=== PATIENT | female | born 2000 | race Caucasian/White ===

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

== ENCOUNTER 2019-06-05 11:07 | Emergency (ER) | payer OTHER ==
[2019-06-05 11:19] VITALS: TEMP 98.9; BMI 28.3
--- NOTE | 2019-06-05 12:16 | PDOC ---
History of Present Illness - General Chief Complaint: Cold Symptoms Stated Complaint: SOB Time Seen by Provider: 06/05/19 11:24 - History of Present Illness Initial Comments: 06/05/19 12:14 19-year-old female with 3 days of upper respiratory flulike symptoms and fever x1 day no comorbidities Past History - Past Medical History Allergies/Adverse Reactions: Allergies Allergy/AdvReac Type Severity Reaction Status Date / Time cat dander Allergy Verified 06/05/19 11:16 ketorolac [From Toradol] Allergy Hives Verified 06/05/19 11:21 Home Medications: Ambulatory Orders NK [No Known Home Medication] 06/11/17 COPD: No - Immunization History Immunization Up to Date: Yes - Psycho Social/Smoking Cessation Hx Smoking History: Never smoked Have you smoked in the past 12 months: No Hx Alcohol Use: No Drug/Substance Use Hx: No Substance Use Type: None Review of Systems - Review of Systems Constitutional: Yes: Fever HEENTM: Yes: Nose Congestion Respiratory: Yes: Cough *Physical Exam - Vital Signs Last Vital Signs Temp Pulse Resp BP Pulse Ox 98.9 F 111 H 18 135/87 95 06/05/19 11:16 06/05/19 11:16 06/05/19 11:16 06/05/19 11:16 06/05/19 11:16 - Physical Exam 06/05/19 12:14 GENERAL: The patient is awake, alert, and fully oriented, in no acute distress. HEAD: Normal with no signs of trauma. EYES: sclera anicteric, conjunctiva clear. ENT: Ears normal tympanic membranes normal oropharynx clear uvula midline NECK: Normal range of motion LUNGS: Breath sounds equal, clear to auscultation bilaterally. No wheezes, and no crackles. HEART: S1 and S2 without murmur, rub or gallop. ABDOMEN: Soft, nontender, normoactive bowel sounds. No guarding, no rebound. No masses. EXTREMITIES: Normal range of motion, no edema. No clubbing or cyanosis. No cords, erythema, or tenderness. NEUROLOGICAL: Cranial nerves II through XII grossly intact. Normal speech, normal gait. PSYCH: Normal mood, normal affect. SKIN: Warm, Dry, normal turgor, no rashes or lesions noted. Medical Decision Making - Medical Decision Making 06/05/19 12:14 Negative influenza swab viral upper respiratory infection supportive care Discharge - Discharge Information Problems reviewed: Yes Clinical Impression/Diagnosis: Viral URI with cough Condition: Stable Disposition: HOME - Admission No - Follow up/Referral Referrals: Walt Livingston MD [Staff Physician] - - Patient Discharge Instructions Patient Printed Discharge Instructions: DI for Viral Upper Respiratory Infection -- Adult Additional Instructions: Return to the emergency room for worsening symptoms. Supportive care with clear liquid, Tylenol Motrin for fever. Follow-up with your primary care physician in 1 to 2 days for further evaluation and treatment options. Follow- up without fail. - Post Discharge Activity
[2019-06-05 12:26] VITALS: BP 133/82; PULSE 107
--- NOTE | 2019-06-06 12:10 | EKG ---
Test Reason : Blood Pressure : / mmHG Vent. Rate : 092 BPM Atrial Rate : 092 BPM P-R Int : 116 ms QRS Dur : 084 ms QT Int : 358 ms P-R-T Axes : -08 -18 009 degrees QTc Int : 442 ms POOR DATA QUALITY, INTERPRETATION MAY BE ADVERSELY AFFECTED NORMAL SINUS RHYTHM ABNORMAL ECG WHEN COMPARED WITH ECG OF 23-NOV-2018 16:35, INVERTED T WAVES HAVE REPLACED NONSPECIFIC T WAVE ABNORMALITY IN ANTERIOR LEADS Confirmed by MD Nuria, Dylon ([id number]) on 06/06/2019 12:10:07 PM Referred By: Confirmed By:Dylon Quiñones MD
== END 2019-06-05 12:35 | disposition home or self-care (01) ==
LOC: JERFT 11:07
DX: J06.9 Acute upper respiratory infection, unspecified (principal); B97.89 Other viral agents as the cause of diseases classified elsewhere
CPT/HCPCS: 87804; 93005; 93010; 99284-25

== ENCOUNTER 2019-12-25 11:34 | Emergency (ER) | payer OTHER ==
[2019-12-25 11:42] VITALS: TEMP 97.8; BMI 29.7
--- NOTE | 2019-12-25 11:42 | PDOC ---
Rapid Medical Evaluation Chief Complaint: Vaginal Bleeding Time Seen by Provider: 12/25/19 11:38 Medical Evaluation: Allergies Allergy/AdvReac Type Severity Reaction Status Date / Time cat dander Allergy Verified 12/25/19 11:38 ketorolac [From Toradol] Allergy Hives Verified 12/25/19 11:38 12/25/19 11:38 I have performed a brief in-person evaluation of this patient. The patient presents with a chief complaint of: LMP 11/03 present with complains of vaginal bleeding yesterday saoking 1 pad which has improved now. pt is 8wks by LMP. Pt also report aching left back pains with dysuria for 3 days. pt also feels she has yeast infection. report has first OB appt today but was told by office they do not take her insurance. report no bleeding now Pertinent physical exam findings: A&O x 3 in NAD. no CAT I have ordered the following: CBC, beta hcg, cmp, UA, Ucx, POCUS The patient will proceed to the ED for further evaluation. Discharge Disposition - Diagnosis Vaginal bleeding before 22 weeks gestation - Discharge Dispostion Condition at time of disposition: Stable - Referrals - Patient Instructions - Post Discharge Activity
[2019-12-25 12:42] LABS: BASO % 0.5 % (0-2.0); EOS % 0.3 % (0-4.5); HEMATOCRIT 39.8 % (32.4-45.2); HEMOGLOBIN 13.4 GM/dL (10.7-15.3); LYMPH % 18.5 % (8-40); MCH 31.7 pg (25.7-33.7); MCHC 33.8 g/dl (32.0-36.0); MEAN PLT VOLUME 8.2 fl (7.5-11.1); MONO % 6.2 % (3.8-10.2); NEUT % 74.5 % (42.8-82.8); PLATELET COUNT 261 K/MM3 (134-434); RBC 4.23 M/mm3 (3.60-5.2); WHITE BLOOD COUNT 10.3 K/mm3 (4.0-10.0)
[2019-12-25 12:51] LABS: PH,URINE 7.5 (5.0-8.0); URINE APPEARANCE CLEAR; URINE BILIRUBIN NEGATIVE (NEGATIVE); URINE COLOR YELLOW; URINE GLUCOSE (UA) NEGATIVE (NEGATIVE); URINE KETONE NEGATIVE (NEGATIVE); URINE LEUK ESTERASE NEGATIVE (NEGATIVE); URINE NITRITE NEGATIVE (NEGATIVE); URINE PROTEIN NEGATIVE (NEGATIVE); URINE UROBILINOGEN 0.2 mg/dL (0.2-1.0)
--- NOTE | 2019-12-25 12:53 | PDOC ---
History of Present Illness <Laura Connelly - Last Filed: 12/25/19 14:47> - General History Source: Patient Exam Limitations: No Limitations - History of Present Illness Travel History: No Initial Comments: 12/25/19 12:51 HISTORY OF PRESENT ILLNESS: 19-year-old with last menstrual period 11/03 presents emergency department for evaluation of scant vaginal bleeding and lower back pain over the past 2 days. Patient reports she is needed only a panty liner as she has had vaginal spotting but was concerned when this morning she had small blood clot discharged. Patient reports also thick white vaginal disch arge. Patient reports she had made an appointment with [facility] to be evaluated today but when she got to the office was told that they did not accept her insurance. Patient then proceeded to the emergency department for evaluation. She denies fevers, chills, lightheadedness, dizziness, chest pain, shortness of breath, dysuria, hematuria, rectal bleeding, constipation or diarrhea. No recent travel or sick contacts. PAST MEDICAL HISTORY: Denies past medical history SURGICAL HISTORY: Denies ALLERGIES: No known drug allergies REVIEW OF SYSTEMS General/Constitutional: Denies fever or chills. Denies weakness, weight change. HEENT: Denies change in vision. Denies ear pain or discharge. Denies sore throat. Cardiovascular: Denies chest pain or shortness of breath. Respiratory: Denies cough, wheezing, or hemoptysis. Gastrointestinal: Denies nausea, vomiting, diarrhea or constipation. Denies r ectal bleeding. Genitourinary: See HPI Musculoskeletal: Denies joint or muscle swelling or pain. Denies neck or back pain. Skin and breasts: Denies rash or easy bruising. Neurologic: Denies headache, vertigo, loss of consciousness, or loss of sensation. Psychiatric: Denies depression or anxiety. Endocrine: Denies increased thirst. Denies abnormal weight change. Hematologic/Lymphatic: Denies anemia, easy bleeding, or history of blood clots. Allergic/Immunologic: Denies hives or skin allergy. Denies latex allergy. PHYSICAL EXAM General Appearance: Well-appearing, appropriately dressed. No apparent distress, no intoxication. Gastrointestinal/Abdominal: Normal bowel sounds. Abdomen soft, non-distended. No tenderness or rebound tenderness. No organomegaly, pulsatile mass, guarding, hernia, hepatomegaly, splenomegaly. Lymphatic: No adenopathy, tenderness. Musculoskeletal/Extremities: Normal inspection. FROM of all extremities, normal capillary refill. Pelvis Stable. No CVA tenderness. No tenderness to extremities, pedal edema, swelling, erythema or deformity. 12/25/19 13:09 <GoldenDewayne - Last Filed: 12/25/19 17:30> - General Chief Complaint: Vaginal Bleeding Stated Complaint: BACK PAIN Time Seen by Provider: 12/25/19 11:38 Past History <MaricelLaura Lujan - Last Filed: 12/25/19 14:47> - Medical History COPD: No - Reproductive History (#): 1 Para: 0 Therapeutic (s) & number: No Spontaneous : 0 - Immunization History Immunization Up to Date: Yes - Psycho-Social/Smoking History Smoking History: Never smoked Have you smoked in the past 12 months: No Information on smoking cessation initiated: No - Substance Abuse Hx (Audit-C & DAST Scrn) How often the patient has a drink containing alcohol: Never Score: In Men: 4 or > Positive; In Women: 3 or > Positive: 0 Screen Result (Pos requires Nsg. Audit-10AR): Negative In the last yr the pt used illegal drug/Rx for NonMed reason: No Score: Yes response is considered Positive: 0 Screen Result (Positive result requires Nsg. DAST-10): Negative <Dewayne Franks - Last Filed: 12/25/19 17:30> - Medical History Allergies/Adverse Reactions: Allergies Allergy/AdvReac Type Severity Reaction Status Date / Time cat dander Allergy Verified 12/25/19 11:38 ketorolac [From Toradol] Allergy Hives Verified 12/25/19 11:38 Home Medications: Ambulatory Orders Lidocaine 2% Jelly [Xylocaine 2% Jelly -] 1 applic TP DAILY #1 tube 12/03/19 Pnv No.121/Iron/Folic Acid [ Multivitamin Tablet] 1 each PO DAILY #30 tablet 12/03/19 Terconazole 80 mg VG HS #3 supp.vag 12/25/19 *Physical Exam - Vital Signs Last Vital Signs Temp Pulse Resp BP Pulse Ox 97.8 F 86 16 122/74 95 12/25/19 11:39 12/25/19 11:39 12/25/19 11:39 12/25/19 11:39 12/25/19 11:39 <Laura Connelly - Last Filed: 12/25/19 14:47> - Vital Signs Last Vital Signs Temp Pulse Resp BP Pulse Ox 97.8 F 86 16 122/74 95 12/25/19 11:39 12/25/19 11:39 12/25/19 11:39 12/25/19 11:39 12/25/19 11:39 - Physical Exam General Appearance: Yes: Appropriately Dressed. No: Apparent Distress Female Pelvic Exam: positive: normal external exam, cervical os closed, discharge (Thick white anodorous discharge with the appearance consistent of candidiasis), other (Exquisite tenderness with insertion of speculum and index finger disproportionate to exam.). negative: CMT, adnexal tenderness, vaginal bleeding Gastrointestinal/Abdominal: positive: Normal Bowel Sounds, Soft. negative: T blayne <Dewayne Franks - Last Filed: 12/25/19 17:30> ED Treatment Course - LABORATORY CBC & Chemistry Diagram: 12/25/19 12:16 12/25/19 12:16 - ADDITIONAL ORDERS Additional order review: Laboratory Results 12/25/19 12/25/19 12:16 12:11 Sodium 138 Potassium 3.9 Chloride 105 Carbon Dioxide 24 Anion Gap 8 BUN 13.2 Creatinine 0.7 Est GFR (CKD-EPI)AfAm 143.54 Est GFR (CKD-EPI)NonAf 123.85 Random Glucose 82 Calcium 8.9 Total Bilirubin 0.4 AST 6 L ALT 12 L Alkaline Phosphatase 41 L Total Protein 7.0 Albumin 3.8 Beta HCG, Quant 11035.8 Urine Color Yellow Urine Appearance Clear Urine pH 7.5 D Ur Specific [place] 1.029 Urine Protein Negative Urine Glucose (UA) Negative Urine Ketones Negative Urine Blood Negative Urine Nitrite Negative Urine Bilirubin Negative Urine Urobilinogen 0.2 Ur Leukocyte Esterase Negative 12/25/19 12:16 RBC 4.23 MCV 94.0 MCHC 33.8 RDW 13.0 MPV 8.2 Neutrophils % 74.5 Lymphocytes % 18.5 D Monocytes % 6.2 Eosinophils % 0.3 Basophils % 0.5 <Laura Connelly - Last Filed: 12/25/19 14:47> - LABORATORY CBC & Chemistry Diagram: 12/25/19 12:16 12/25/19 12:16 - ADDITIONAL ORDERS Additional order review: Laboratory Results 12/25/19 12:11 Urine Color Yellow Urine Appearance Clear Urine pH 7.5 D Ur Specific [place] 1.029 Urine Protein Negative Urine Glucose (UA) Negative Urine Ketones Negative Urine Blood Negative Urine Nitrite Negative Urine Bilirubin Negative Urine Urobilinogen 0.2 Ur Leukocyte Esterase Negative 12/25/19 12:16 RBC 4.23 MCV 94.0 MCHC 33.8 RDW 13.0 MPV 8.2 Neutrophils % 74.5 Lymphocytes % 18.5 D Monocytes % 6.2 Eosinophils % 0.3 Basophils % 0.5 <Dewayne Franks - Last Filed: 12/25/19 17:30> Medical Decision Making - Medical Decision Making The patient was seen and evaluated in conjunction with midlevel provider under my direct supervision, ancillary studies were reviewed. I agree with the plan as outlined with_MARSHA Franks. HPI, workup/dispo as outlined. VS reviewed, wnl. Vital Signs Temp Pulse Resp BP Pulse Ox 97.8 F 86 16 122/74 95 12/25/19 11:39 12/25/19 11:39 12/25/19 11:39 12/25/19 11:39 12/25/19 11:39 bedside sono with 7 weeks live IUP 139 bpm. 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, return precautions, bleeding precautions 12/25/19 14:47 <Laura Connelly - Last Filed: 12/25/19 14:47> - Medical Decision Making 12/25/19 13:13 A/P: 19-year-old woman with vaginal bleeding over 2 days No cervical motion tenderness Thick white caseous discharge present in the vagina Cervical loss is closed Labs per RME Urine GC [id number] abdominal ultrasound Reassess 12/25/19 14:08 Laboratory Tests 12/25/19 12/25/19 12/25/19 12:11 12:11 12:16 WBC 10.3 H RBC 4.23 Hgb 13.4 Hct 39.8 MCV 94.0 MCH 31.7 MCHC 33.8 RDW 13.0 Plt Count 261 MPV 8.2 Absolute Neuts (auto) 7.7 Neutrophils % 74.5 Lymphocytes % 18.5 D Monocytes % 6.2 Eosinophils % 0.3 Basophils % 0.5 Nucleated RBC % 0 Sodium Potassium Chloride Carbon Dioxide Anion Gap BUN Creatinine Est GFR (CKD-EPI)AfAm Est GFR (CKD-EPI)NonAf Random Glucose Calcium Total Bilirubin AST ALT Alkaline Phosphatase Total Protein Albumin Beta HCG, Quant Urine Color Yellow Urine Appearance Clear Urine pH 7.5 D Ur Specific [place] 1.029 Urine Protein Negative Urine Glucose (UA) Negative Urine Ketones Negative Urine Blood Negative Urine Nitrite Negative Urine Bilirubin Negative Urine Urobilinogen 0.2 Ur Leukocyte Esterase Negative C. trachomatis (FILIBERTO) Pending N. gonorrhoeae (FILIBERTO) Pending 12/25/19 12:16 WBC RBC Hgb Hct MCV MCH MCHC RDW Plt Count MPV Absolute Neuts (auto) Neutrophils % Lymphocytes % Monocytes % Eosinophils % Basophils % Nucleated RBC % Sodium 138 Potassium 3.9 Chloride 105 Carbon Dioxide 24 Anion Gap 8 BUN 13.2 Creatinine 0.7 Est GFR (CKD-EPI)AfAm 143.54 Est GFR (CKD-EPI)NonAf 123.85 Random Glucose 82 Calcium 8.9 Total Bilirubin 0.4 AST 6 L ALT 12 L Alkaline Phosphatase 41 L Total Protein 7.0 Albumin 3.8 Beta HCG, Quant 64883.8 Urine Color Urine Appearance Urine pH Ur Specific [place] Urine Protein Urine Glucose (UA) Urine Ketones Urine Blood Urine Nitrite Urine Bilirubin Urine Urobilinogen Ur Leukocyte Esterase C. trachomatis (FILIBERTO) N. gonorrhoeae (FILIBERTO) 12/25/19 14:11 Previous blood testing revealed patient was Rh-. This patient has had some vaginal bleeding abdominal cramping will treat with RhoGam. 12/25/19 16:33 Patient's Rh status is confirmed. RhoGam ordered. Discharge home after receives RhoGam. I discussed the physical exam findings, ancillary test results and final diagnoses with the patient. I answered all of the patient's questions. The patient was satisfied with the care received and felt comfortable with the discharge plan and treatment plan. The patient will call their primary care physician within 24 hours to arrange follow-up and will return to the Emergency Department with any new, persistent or worsening symptoms. Portions of this note have been documented using voice recognition software. As a result, errors may occur in the furniture fabricator process. Effort has been made to correct all grammatical and furniture fabricator error, but some may have been missed which may produce sporadic inaccurate furniture fabricator or nonsensical phrases. <Dewayne Franks - Last Filed: 12/25/19 17:30> Discharge <Laura Connelly - Last Filed: 12/25/19 14:47> - Discharge Information Problems reviewed: Yes - Admission No <Dewayne Franks - Last Filed: 12/25/19 17:30> - Discharge Information Clinical Impression/Diagnosis: Vaginal bleeding before 22 weeks gestation, Suzy albicans infection Condition: Fair Disposition: HOME - Additional Discharge Information Prescriptions: Terconazole 80 mg VG HS #3 supp.vag - Patient Discharge Instructions Additional Instructions: You received RhoGam today. Take your vitamins. Keep well-hydrated. Avoid tobacco and alcohol as well as illegal drugs. Make an appointment with your [facility] for reevaluation. Return to the emergency department immediately for severe pain, vaginal bleeding that requires more than 2 pads per hour or for any other symptoms. Thank you very much for choosing us to provide your emergent health care needs.
[2019-12-25 13:16] LABS: ALBUMIN 3.8 g/dl (3.4-5.0); BILIRUBIN,TOTAL 0.4 mg/dL (0.2-1); BLOOD UREA NITROGEN 13.2 mg/dL (7-18); CALCIUM 8.9 mg/dL (8.5-10.1); CREATININE 0.7 mg/dL (0.55-1.3); POTASSIUM 3.9 mmol/L (3.5-5.1)
[2019-12-25] MEDS ORDERED: RHO(D) IMMUNE GLOBULIN 1,500 UNIT DISP.SYRIN IM ONE (16:32)
[2019-12-25 17:06] VITALS: BP 155/90; PULSE 90
== END 2019-12-25 17:06 | disposition home or self-care (01) ==
LOC: JER 11:34
PROC: 3E023GC Introduction of Other Therapeutic Substance into Muscle, Percutaneous Approach (ICD-10-PCS; principal; 2019-12-25)
DX: O26.851 Spotting complicating pregnancy, first trimester (principal)
CPT/HCPCS: 36415; 76815; 80053; 81003; 84702; 85025; 86850; 86900; 86901; 86999; 87086; 87491; 87591; 99284-25; J1561

== ENCOUNTER 2020-01-05 09:29 | Emergency (ER) | payer OTHER ==
[2020-01-05 09:40] VITALS: BMI 29.7
[2020-01-05] MEDS ORDERED: ACETAMINOPHEN 325 MG TABLET (FP) ONE (10:27)
[2020-01-05] MEDS ORDERED: ACETAMINOPHEN 325 MG TABLET (FP) PO ONE (10:28)
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
[2020-01-05 11:37] VITALS: BP 117/67; PULSE 76; TEMP 98.2
== END 2020-01-05 11:45 | disposition home or self-care (01) ==
LOC: JERFT 09:29
DX: S63.501A Unspecified sprain of right wrist, initial encounter (principal); M54.5 Low back pain; V89.2XXA Person injured in unspecified motor-vehicle accident, traffic, initial encounter
CPT/HCPCS: 73110-TC-RT-FY; 73130-TC-RT-FY; 76815; 99284-25

== ENCOUNTER 2020-10-29 17:06 | Emergency (ER) | payer OTHER ==
[2020-10-29 17:34] VITALS: BP 109/61; TEMP 98.2; BMI 28.8
[2020-10-29] MEDS ORDERED: LORATADINE 10 MG TABLET PO ONE (17:50)
[2020-10-29 18:08] VITALS: PULSE 82
[2020-10-29 18:27] LABS: BASO % 0.3 % (0-2.0); EOS % 2.1 % (0-4.5); LYMPH % 34.8 % (8-40); MCH 30.8 pg (25.7-33.7); MCHC 33.3 g/dl (32.0-36.0); MEAN CELL VOLUME 92.5 fl (80-96); MONO % 7.1 % (3.8-10.2); NEUT % 55.7 % (42.8-82.8); PLATELET COUNT 240 K/MM3 (134-434); RBC 4.22 M/mm3 (3.60-5.2); RDW 13.3 % (11.6-15.6); WHITE BLOOD COUNT 5.6 K/mm3 (4.0-10.0)
== END 2020-10-29 18:47 | disposition home or self-care (01) ==
LOC: JERFT 17:06 → JER 17:06 → JERFT 18:47
DX: L30.9 Dermatitis, unspecified (principal)
CPT/HCPCS: 36415; 85025; 99283-25

== ENCOUNTER 2020-11-09 14:28 | Emergency (ER) | payer OTHER ==
[2020-11-09 14:36] VITALS: BP 141/88; PULSE 51; TEMP 98.8; BMI 29.7
[2020-11-09] MEDS ORDERED: ONDANSETRON 4 MG/2 ML VIAL IVPUSH ONE (15:11)
[2020-11-09] MEDS ORDERED: SODIUM CHLORIDE 1,000 ML IV STA (15:11)
[2020-11-09] MEDS ORDERED: ONDANSETRON 4 MG/2 ML VIAL ONE (15:21)
[2020-11-09 15:58] LABS: CALCIUM 8.5 mg/dL (8.5-10.1)
[2020-11-09 15:59] LABS: BLOOD UREA NITROGEN 21.9 mg/dL (7-18)
[2020-11-09 16:02] LABS: CREATININE 0.8 mg/dL (0.55-1.3)
[2020-11-09 16:03] LABS: BILIRUBIN,TOTAL 0.9 mg/dL (0.2-1); TOT PROT 7.4 g/dl (6.4-8.2)
[2020-11-09 16:04] LABS: BASO % 0.1 % (0-2.0); HEMATOCRIT 39.4 % (32.4-45.2); HEMOGLOBIN 13.3 GM/dL (10.7-15.3); LYMPH % 2.3 % (8-40); MCH 31.5 pg (25.7-33.7); MCHC 33.8 g/dl (32.0-36.0); MEAN CELL VOLUME 93.3 fl (80-96); MEAN PLT VOLUME 8.8 fl (7.5-11.1); MONO % 2.5 % (3.8-10.2); NEUT % 95.1 % (42.8-82.8); PLATELET COUNT 191 K/MM3 (134-434); RBC 4.23 M/mm3 (3.60-5.2); RDW 13.7 % (11.6-15.6); WHITE BLOOD COUNT 10.9 K/mm3 (4.0-10.0)
[2020-11-09 16:38] LABS: ANISOCYTOSIS 0; MACROCYTOSIS 0; PLATELET ESTIMATE NORMAL
[2020-11-09 17:56] LABS: PH,URINE 6.5 (5.0-8.0); URINE APPEARANCE CLEAR; URINE BILIRUBIN NEGATIVE (NEGATIVE); URINE COLOR YELLOW; URINE GLUCOSE (UA) TRACE (NEGATIVE); URINE KETONE 4+ (NEGATIVE); URINE LEUK ESTERASE NEGATIVE (NEGATIVE); URINE NITRITE NEGATIVE (NEGATIVE); URINE PROTEIN 1+ (NEGATIVE)
[2020-11-09 18:01] LABS: HCG,QUALITATIVE URINE Negative
== END 2020-11-09 18:19 | disposition home or self-care (01) ==
LOC: JER 14:28
PROC: 3E033GC Introduction of Other Therapeutic Substance into Peripheral Vein, Percutaneous Approach (ICD-10-PCS; principal; 2020-11-09)
PROC: 3E0337Z Introduction of Electrolytic and Water Balance Substance into Peripheral Vein, Percutaneous Approach (ICD-10-PCS; principal; 2020-11-09)
DX: K52.9 Noninfective gastroenteritis and colitis, unspecified (principal)
CPT/HCPCS: 36415; 80053; 81003; 83690; 84703; 85025; 87086; 99284-25

== ENCOUNTER 2021-01-11 12:53 | Emergency (ER) | payer OTHER ==
[2021-01-11 13:05] VITALS: BP 109/67; PULSE 106; TEMP 98.1; BMI 24.3
== END 2021-01-11 14:04 | disposition home or self-care (01) ==
LOC: JERFT 12:53
DX: K08.89 Other specified disorders of teeth and supporting structures (principal)
CPT/HCPCS: 99283-25

== ENCOUNTER 2023-06-17 12:54 | Emergency (ER) | payer OTHER ==
[2023-06-17 13:03] VITALS: BP 118/55; PULSE 103; RESP 17; TEMP 98.3; BMI 21.9
[2023-06-17] MEDS ORDERED: SODIUM CHLORIDE 0.9% 500 ML INFUS.BAG IV ONE (13:52)
[2023-06-17 14:40] LABS: PH,URINE 5.5 (5.0-8.0); URINE APPEARANCE CLEAR; URINE BILIRUBIN NEGATIVE (NEGATIVE); URINE COLOR YELLOW; URINE GLUCOSE (UA) NEGATIVE (NEGATIVE); URINE KETONE TRACE (NEGATIVE); URINE LEUK ESTERASE NEGATIVE (NEGATIVE); URINE NITRITE NEGATIVE (NEGATIVE); URINE PROTEIN TRACE (NEGATIVE)
[2023-06-17 14:42] LABS: BASO % 0.8 % (0-2.0); EOS % 0.3 % (0-4.5); HEMATOCRIT 40.4 % (32.4-45.2); HEMOGLOBIN 13.5 GM/dL (10.7-15.3); LYMPH % 29.4 % (8-40); MCH 31.5 pg (25.7-33.7); MCHC 33.3 g/dl (32.0-36.0); MEAN CELL VOLUME 94.6 fl (80-96); MEAN PLT VOLUME 7.7 fl (7.5-11.1); MONO % 5.8 % (3.8-10.2); NEUT % 63.7 % (42.8-82.8); PLATELET COUNT 248 10^3/uL (134-434); RBC 4.28 M/mm3 (3.60-5.2); RDW 12.6 % (11.6-15.6); WHITE BLOOD COUNT 6.6 K/mm3 (4.0-10.0)
[2023-06-17 15:08] LABS: POTASSIUM 3.5 mmol/L (3.5-5.1)
[2023-06-17 15:10] LABS: ALBUMIN 4.2 g/dl (3.4-5.0); BLOOD UREA NITROGEN 14.7 mg/dL (7-18); CALCIUM 9.1 mg/dL (8.5-10.1)
[2023-06-17 15:13] LABS: CREATININE 0.8 mg/dL (0.55-1.3)
[2023-06-17 15:15] LABS: BILIRUBIN,TOTAL 0.7 mg/dL (0.2-1); TOT PROT 7.5 g/dl (6.4-8.2)
== END 2023-06-17 16:06 | disposition home or self-care (01) ==
LOC: JER 12:54
DX: R07.89 Other chest pain (principal); R55 Syncope and collapse; Z20.822 Contact with and (suspected) exposure to COVID-19
CPT/HCPCS: 0241U-QW; 36415; 71046-TC-FY; 80053; 81003; 84443; 84484; 84703; 85025; 87086; 93005; 93010; 99285-25

== ENCOUNTER 2023-09-02 14:24 | Emergency (ER) | payer OTHER ==
[2023-09-02 14:29] VITALS: RESP 20; BMI 21.1
[2023-09-02] MEDS ORDERED: FAMOTIDINE 20 MG/50 ML IVPB 20 MG/50 ML MG IVPB ONE (17:09)
[2023-09-02] MEDS ORDERED: ACETAMINOPHEN INJECTION 100 ML IVPB ONE (17:09)
[2023-09-02] MEDS: FAMOTIDINE 20 MG/50 ML IVPB 20 MG/50 ML MG IVPB ONE (17:25)
[2023-09-02] MEDS: ACETAMINOPHEN 1000 MG/100 ML BAG IVPB ONE (17:25)
[2023-09-02] MEDS: SODIUM CHLORIDE 1,000 ML IV STA (17:25)
[2023-09-02 17:40] LABS: BASO % 0.5 % (0-2.0); EOS % 0.2 % (0-4.5); HEMATOCRIT 38.9 % (32.4-45.2); HEMOGLOBIN 13.4 GM/dL (10.7-15.3); LYMPH % 26.7 % (8-40); MCH 32.6 pg (25.7-33.7); MCHC 34.4 g/dl (32.0-36.0); MEAN CELL VOLUME 94.6 fl (80-96); MEAN PLT VOLUME 8.1 fl (7.5-11.1); MONO % 6.9 % (3.8-10.2); NEUT % 65.7 % (42.8-82.8); PLATELET COUNT 224 10^3/uL (134-434); RBC 4.11 M/mm3 (3.60-5.2); RDW 13.1 % (11.6-15.6); WHITE BLOOD COUNT 9.8 K/mm3 (4.0-10.0)
[2023-09-02 18:07] LABS: POTASSIUM 3.6 mmol/L (3.5-5.1)
[2023-09-02 18:10] LABS: CALCIUM 8.8 mg/dL (8.5-10.1)
[2023-09-02 18:11] LABS: BLOOD UREA NITROGEN 13.6 mg/dL (7-18)
[2023-09-02 18:13] LABS: CREATININE 0.7 mg/dL (0.55-1.3)
[2023-09-02 18:15] LABS: BILIRUBIN,TOTAL 0.6 mg/dL (0.2-1)
[2023-09-02 18:20] LABS: PH,URINE 5.5 (5.0-8.0); URINE APPEARANCE CLEAR; URINE BILIRUBIN NEGATIVE (NEGATIVE); URINE COLOR DK YELLOW; URINE GLUCOSE (UA) NEGATIVE (NEGATIVE); URINE KETONE 1+ (NEGATIVE); URINE LEUK ESTERASE NEGATIVE (NEGATIVE); URINE NITRITE NEGATIVE (NEGATIVE); URINE PROTEIN TRACE (NEGATIVE); URINE UROBILINOGEN 0.2 mg/dL (0.2-1.0)
[2023-09-02 21:26] VITALS: BP 100/60; PULSE 66; TEMP 97.4
== END 2023-09-02 22:20 | disposition home or self-care (01) ==
LOC: JER 14:24
PROC: 3E033GC Introduction of Other Therapeutic Substance into Peripheral Vein, Percutaneous Approach (ICD-10-PCS; principal; 2023-09-02)
PROC: 3E030NZ Introduction of Analgesics, Hypnotics, Sedatives into Peripheral Vein, Open Approach (ICD-10-PCS; 2023-09-02)
DX: R06.02 Shortness of breath (principal); R00.2 Palpitations; R07.9 Chest pain, unspecified; R10.812 Left upper quadrant abdominal tenderness; Z20.822 Contact with and (suspected) exposure to COVID-19
CPT/HCPCS: 0241U-QW; 36415; 71045-TC-FY; 74177-TC; 80053; 81003; 83690; 84443; 84484; 84703; 85025; 85379; 87086; 93005; 93010; 99285-25; J0131; Q9967

== ENCOUNTER 2023-10-12 19:49 | Emergency (ER) | payer OTHER ==
[2023-10-12 20:01] VITALS: BP 123/72; PULSE 65; RESP 17; TEMP 98.4; BMI 20.3
[2023-10-12] MEDS: SODIUM CHLORIDE 0.9% 500 ML INFUS.BAG IV ONE (20:45)
[2023-10-12] MEDS: ONDANSETRON 4 MG/2 ML VIAL IVPUSH ONE (20:45)
[2023-10-12] MEDS ORDERED: ONDANSETRON 4 MG/2 ML VIAL ONE (20:51)
[2023-10-12 21:13] LABS: BASO % 0.9 % (0-2.0); EOS % 0.3 % (0-4.5); HEMATOCRIT 39.5 % (32.4-45.2); HEMOGLOBIN 13.5 GM/dL (10.7-15.3); LYMPH % 35.6 % (8-40); MCH 32.4 pg (25.7-33.7); MCHC 34.2 g/dl (32.0-36.0); MEAN CELL VOLUME 94.7 fl (80-96); MEAN PLT VOLUME 7.9 fl (7.5-11.1); MONO % 6.2 % (3.8-10.2); PLATELET COUNT 211 10^3/uL (134-434); RBC 4.17 M/mm3 (3.60-5.2); RDW 12.8 % (11.6-15.6); WHITE BLOOD COUNT 6.5 K/mm3 (4.0-10.0)
[2023-10-12 21:31] LABS: POTASSIUM 3.3 mmol/L (3.5-5.1)
[2023-10-12 21:32] LABS: CALCIUM 9.4 mg/dL (8.5-10.1)
[2023-10-12 21:33] LABS: ALBUMIN 4.4 g/dl (3.4-5.0); BLOOD UREA NITROGEN 10.6 mg/dL (7-18); MAGNESIUM 2.3 mg/dL (1.8-2.4)
[2023-10-12 21:38] LABS: TOT PROT 7.4 g/dl (6.4-8.2)
[2023-10-12 21:39] LABS: BILIRUBIN,TOTAL 0.6 mg/dL (0.2-1)
[2023-10-12 21:47] LABS: CREATININE 0.7 mg/dL (0.55-1.3)
[2023-10-12] MEDS: POTASSIUM CHLORIDE TABS 20 MEQ TABLET.ER (FP) PO ONE (22:04)
[2023-10-12] MEDS ORDERED: POTASSIUM CHLORIDE TABS 20 MEQ TABLET.ER (FP) PO ONE (22:07)
== END 2023-10-12 22:12 | disposition home or self-care (01) ==
LOC: JER 19:49
PROC: 3E033GC Introduction of Other Therapeutic Substance into Peripheral Vein, Percutaneous Approach (ICD-10-PCS; principal; 2023-10-12)
DX: R06.02 Shortness of breath (principal); R07.89 Other chest pain; R00.2 Palpitations; R42 Dizziness and giddiness; F41.9 Anxiety disorder, unspecified
CPT/HCPCS: 36415; 71046-TC-FY; 80053; 83735; 84443; 84484; 84703; 85025; 93005; 93010; 99285-25

== ENCOUNTER 2023-10-14 12:47 | Emergency (ER) | payer OTHER ==
[2023-10-14 12:53] VITALS: BP 144/85; PULSE 80; RESP 18; TEMP 98.3; BMI 19.8
[2023-10-14] MEDS ORDERED: ALPRAZolam 0.25 MG TABLET ONE (13:26)
[2023-10-14] MEDS: ALPRAZolam 1 MG TABLET PO ONE (13:35)
[2023-10-14 13:55] LABS: VENOUS BASE EXCESS 0.1 mmol/L (-2-2); VENOUS O2 SATURATION 61.7 % (70-80); VENOUS PCO2 31.6 mmHg (38-52); VENOUS PH 7.475 (7.310-7.410)
[2023-10-14] MEDS: LACTATED RINGERS SOLUTION 1000 ML INFUS.BAG IV ONE (13:55)
[2023-10-14 14:25] LABS: EOS % 0.4 % (0-4.5); HEMATOCRIT 42.4 % (32.4-45.2); HEMOGLOBIN 14.6 GM/dL (10.7-15.3); LYMPH % 48.8 % (8-40); MCH 32.4 pg (25.7-33.7); MCHC 34.4 g/dl (32.0-36.0); MEAN CELL VOLUME 94.1 fl (80-96); MEAN PLT VOLUME 8.2 fl (7.5-11.1); MONO % 7.7 % (3.8-10.2); NEUT % 42.1 % (42.8-82.8); PLATELET COUNT 234 10^3/uL (134-434); RBC 4.51 M/mm3 (3.60-5.2); RDW 12.9 % (11.6-15.6); WHITE BLOOD COUNT 4.1 K/mm3 (4.0-10.0)
[2023-10-14 14:35] LABS: CALCIUM 9.7 mg/dL (8.5-10.1); MAGNESIUM 2.4 mg/dL (1.8-2.4)
[2023-10-14 14:36] LABS: BLOOD UREA NITROGEN 11.1 mg/dL (7-18)
[2023-10-14 14:39] LABS: CREATININE 0.9 mg/dL (0.55-1.3)
[2023-10-14 14:47] LABS: POTASSIUM 3.5 mmol/L (3.5-5.1)
== END 2023-10-14 16:28 | disposition home or self-care (01) ==
LOC: JER 12:47
DX: R00.2 Palpitations (principal); R06.02 Shortness of breath; R20.2 Paresthesia of skin
CPT/HCPCS: 36415; 80048; 82803; 83735; 84703; 85025; 93005; 93010; 99284-25

== ENCOUNTER 2023-10-17 17:58 | Emergency (ER) | payer OTHER ==
[2023-10-17 18:03] VITALS: BP 114/91; PULSE 80; RESP 20; TEMP 97.8; BMI 19.8
[2023-10-17] MEDS: hydrOXYzine PAMOATE 50 MG CAPSULE (FP) PO ONE (18:59)
[2023-10-17] MEDS ORDERED: hydrOXYzine PAMOATE 50 MG CAPSULE (FP) ONE (18:59)
[2023-10-17] MEDS ORDERED: METOCLOPRAMIDE HCL INJECTION 10 MG/2 ML VIAL ONE (21:20)
[2023-10-17] MEDS: METOCLOPRAMIDE HCL INJECTION 10 MG/2 ML VIAL IVPB ONE (21:46)
[2023-10-17] MEDS: SODIUM CHLORIDE 0.9% 500 ML INFUS.BAG IV ONE (21:46)
[2023-10-17 22:21] LABS: BASO % 0.4 % (0-2.0); EOS % 0.1 % (0-4.5); HEMATOCRIT 35.7 % (32.4-45.2); HEMOGLOBIN 12.4 GM/dL (10.7-15.3); LYMPH % 24.3 % (8-40); MCH 32.7 pg (25.7-33.7); MCHC 34.6 g/dl (32.0-36.0); MEAN CELL VOLUME 94.5 fl (80-96); MEAN PLT VOLUME 8.3 fl (7.5-11.1); MONO % 5.7 % (3.8-10.2); NEUT % 69.5 % (42.8-82.8); PLATELET COUNT 178 10^3/uL (134-434); RBC 3.78 M/mm3 (3.60-5.2); RDW 12.9 % (11.6-15.6)
[2023-10-17 22:39] LABS: MAGNESIUM 1.9 mg/dL (1.8-2.4)
[2023-10-17 22:42] LABS: PHOSPHOROUS 3.9 mg/dL (2.5-4.9)
[2023-10-17] MEDS ORDERED: FAMOTIDINE 10 MG/ML VIAL IVPB ONE (22:52)
[2023-10-17] MEDS: FAMOTIDINE 20 MG/50 ML IVPB 20 MG/50 ML MG IVPB ONE (23:01)
== END 2023-10-17 23:40 | disposition home or self-care (01) ==
LOC: JER 17:58
PROC: 3E033GC Introduction of Other Therapeutic Substance into Peripheral Vein, Percutaneous Approach (ICD-10-PCS; principal; 2023-10-17)
PROC: 3E030GC Introduction of Other Therapeutic Substance into Peripheral Vein, Open Approach (ICD-10-PCS; 2023-10-17)
DX: R00.2 Palpitations (principal); F41.9 Anxiety disorder, unspecified; R42 Dizziness and giddiness; R11.0 Nausea; R20.2 Paresthesia of skin
CPT/HCPCS: 36415; 83690; 83735; 84100; 84443; 84484; 85025; 93005; 93010; 99284-25

== ENCOUNTER 2023-11-17 14:44 | Emergency (ER) | payer OTHER ==
[2023-11-17 15:05] VITALS: BP 103/67; PULSE 85; RESP 18; TEMP 98; BMI 19.8
[2023-11-17 15:55] LABS: EPI CELLS 27 /uL (0-25.1); HYALINE CASTS 1 /uL (0-3.1); PH,URINE 5.5 (5.0-8.0); URINE APPEARANCE CLEAR; URINE BACTERIA 232 /uL (0-1359); URINE BILIRUBIN NEGATIVE (NEGATIVE); URINE COLOR YELLOW; URINE GLUCOSE (UA) NEGATIVE (NEGATIVE); URINE KETONE NEGATIVE (NEGATIVE); URINE LEUK ESTERASE TRACE (NEGATIVE); URINE NITRITE NEGATIVE (NEGATIVE); URINE PROTEIN NEGATIVE (NEGATIVE); URINE RBC 7 /uL (0-23.9); URINE UROBILINOGEN 0.2 mg/dL (0.2-1.0); URINE WBC 8 /uL (0-25.8)
[2023-11-17 15:57] LABS: HCG,QUALITATIVE URINE Negative
[2023-11-17 16:27] LABS: BASO % 0.7 % (0-2.0); EOS % 0.5 % (0-4.5); HEMATOCRIT 39.8 % (32.4-45.2); HEMOGLOBIN 13.6 GM/dL (10.7-15.3); LYMPH % 31.6 % (8-40); MCH 32.2 pg (25.7-33.7); MCHC 34.2 g/dl (32.0-36.0); MEAN CELL VOLUME 94.3 fl (80-96); MEAN PLT VOLUME 7.3 fl (7.5-11.1); MONO % 6.8 % (3.8-10.2); NEUT % 60.4 % (42.8-82.8); PLATELET COUNT 244 10^3/uL (134-434); RBC 4.22 M/mm3 (3.60-5.2); RDW 13.1 % (11.6-15.6); WHITE BLOOD COUNT 8.4 K/mm3 (4.0-10.0)
[2023-11-17 16:43] LABS: POTASSIUM 3.9 mmol/L (3.5-5.1)
[2023-11-17 16:46] LABS: ALBUMIN 4.2 g/dl (3.4-5.0); BLOOD UREA NITROGEN 15.8 mg/dL (7-18)
[2023-11-17 16:49] LABS: CREATININE 0.6 mg/dL (0.55-1.3)
[2023-11-17 16:50] LABS: BILIRUBIN,TOTAL 0.4 mg/dL (0.2-1); TOT PROT 6.8 g/dl (6.4-8.2)
[2023-11-17] MEDS ORDERED: CEPHALEXIN MONOHYDRATE 500 MG CAPSULE (UD) ONE (19:42)
[2023-11-17] MEDS: CEPHALEXIN 250 MG/5 ML ORAL SUSPENSION PO ONE (19:43)
== END 2023-11-17 19:50 | disposition home or self-care (01) ==
LOC: JER 14:44
DX: N39.0 Urinary tract infection, site not specified (principal); R10.32 Left lower quadrant pain; R53.83 Other fatigue; R63.0 Anorexia
CPT/HCPCS: 36415; 74177-TC; 80053; 81003; 84703; 85025; 87086; 99285-25; Q9967

== ENCOUNTER 2024-01-27 19:47 | Emergency (ER) | payer OTHER ==
[2024-01-27 19:56] VITALS: BP 106/66; PULSE 90; RESP 18; TEMP 98.9; BMI 20.5
[2024-01-27] MEDS ORDERED: ACETAMINOPHEN INJECTION 100 ML IVPB ONE (20:14)
[2024-01-27] MEDS ORDERED: ONDANSETRON 4 MG/2 ML VIAL ONE (20:14)
[2024-01-27] MEDS: ACETAMINOPHEN 1000 MG/100 ML BAG IVPB ONE (20:24)
[2024-01-27] MEDS: LACTATED RINGERS SOLUTION 1000 ML INFUS.BAG IV ONE (20:25)
[2024-01-27] MEDS: ONDANSETRON 4 MG/2 ML VIAL IVPUSH ONE (20:25)
[2024-01-27 20:31] LABS: BASO % 0.4 % (0-2.0); HEMATOCRIT 35.7 % (32.4-45.2); HEMOGLOBIN 12.3 GM/dL (10.7-15.3); LYMPH % 43.7 % (8-40); MCH 32.3 pg (25.7-33.7); MCHC 34.5 g/dl (32.0-36.0); MEAN CELL VOLUME 93.5 fl (80-96); MEAN PLT VOLUME 7.7 fl (7.5-11.1); MONO % 8.7 % (3.8-10.2); NEUT % 46.2 % (42.8-82.8); PLATELET COUNT 201 10^3/uL (134-434); RBC 3.82 M/mm3 (3.60-5.2); RDW 12.5 % (11.6-15.6); WHITE BLOOD COUNT 4.2 K/mm3 (4.0-10.0)
[2024-01-27 20:40] LABS: INR 1.22 (0.83-1.09); PROTHROMBIN TIME (PATIENT) 13.9 SEC (9.7-13.0)
[2024-01-27 20:41] LABS: HCG,QUALITATIVE URINE Negative
[2024-01-27 20:42] LABS: EPI CELLS 25 /uL (0-25.1); HYALINE CASTS 1 /uL (0-3.1); PH,URINE 5.5 (5.0-8.0); URINE APPEARANCE CLOUDY; URINE BACTERIA 162 /uL (0-1359); URINE BILIRUBIN NEGATIVE (NEGATIVE); URINE COLOR YELLOW; URINE GLUCOSE (UA) NEGATIVE (NEGATIVE); URINE KETONE 2+ (NEGATIVE); URINE LEUK ESTERASE NEGATIVE (NEGATIVE); URINE NITRITE NEGATIVE (NEGATIVE); URINE PROTEIN TRACE (NEGATIVE); URINE RBC 445 /uL (0-23.9); URINE WBC 6 /uL (0-25.8)
[2024-01-27 20:42] LABS: ACTIVATED PTT 37.9 SECONDS (25.2-36.5)
[2024-01-27 20:53] LABS: POTASSIUM 3.4 mmol/L (3.5-5.1)
[2024-01-27 20:55] LABS: CALCIUM 8.8 mg/dL (8.5-10.1)
[2024-01-27 20:56] LABS: ALBUMIN 4.3 g/dl (3.4-5.0); BLOOD UREA NITROGEN 17.3 mg/dL (7-18); MAGNESIUM 2.3 mg/dL (1.8-2.4)
[2024-01-27 20:59] LABS: CREATININE 0.8 mg/dL (0.55-1.3)
[2024-01-27 21:00] LABS: BILIRUBIN,TOTAL 0.6 mg/dL (0.2-1); TOT PROT 7.2 g/dl (6.4-8.2)
[2024-01-27] MEDS ORDERED: POTASSIUM CHLORIDE TABS 20 MEQ TABLET.ER (FP) PO ONE ×2 (21:17→21:22)
[2024-01-27] MEDS: POTASSIUM CHLORIDE TABS 20 MEQ TABLET.ER (FP) PO ONE (21:19)
== END 2024-01-27 22:21 | disposition home or self-care (01) ==
LOC: JER 19:47
PROC: 3E033NZ Introduction of Analgesics, Hypnotics, Sedatives into Peripheral Vein, Percutaneous Approach (ICD-10-PCS; principal; 2024-01-27)
PROC: 3E033GC Introduction of Other Therapeutic Substance into Peripheral Vein, Percutaneous Approach (ICD-10-PCS; 2024-01-27)
DX: R10.11 Right upper quadrant pain (principal); R10.13 Epigastric pain; R10.31 Right lower quadrant pain; R10.32 Left lower quadrant pain; R50.9 Fever, unspecified; R53.81 Other malaise; R53.1 Weakness; Z20.822 Contact with and (suspected) exposure to COVID-19
CPT/HCPCS: 0241U-QW; 36415; 76705-TC; 76775-TC; 80053; 81003; 83690; 83735; 84703; 85025; 85610; 85730; 86850; 86900; 86901; 87086; 99284-25; J0131

== ENCOUNTER 2024-02-02 21:50 | Emergency (ER) | payer OTHER ==
[2024-02-02 22:00] VITALS: BMI 21.2
[2024-02-02] MEDS ORDERED: ACETAMINOPHEN 325 MG TABLET (FP) ONE (23:05)
[2024-02-02 23:25] LABS: BASO % 0.6 % (0-2.0); EOS % 0.5 % (0-4.5); HEMATOCRIT 35.8 % (32.4-45.2); LYMPH % 29.7 % (8-40); MCH 31.9 pg (25.7-33.7); MCHC 33.5 g/dl (32.0-36.0); MEAN CELL VOLUME 95.2 fl (80-96); MEAN PLT VOLUME 7.8 fl (7.5-11.1); MONO % 5.1 % (3.8-10.2); NEUT % 64.1 % (42.8-82.8); PLATELET COUNT 181 10^3/uL (134-434); RBC 3.76 M/mm3 (3.60-5.2); RDW 12.4 % (11.6-15.6); WHITE BLOOD COUNT 7.3 K/mm3 (4.0-10.0)
[2024-02-02 23:28] LABS: PH,URINE 5.5 (5.0-8.0); URINE APPEARANCE CLEAR; URINE BILIRUBIN NEGATIVE (NEGATIVE); URINE COLOR YELLOW; URINE GLUCOSE (UA) NEGATIVE (NEGATIVE); URINE KETONE 3+ (NEGATIVE); URINE LEUK ESTERASE NEGATIVE (NEGATIVE); URINE NITRITE NEGATIVE (NEGATIVE); URINE PROTEIN NEGATIVE (NEGATIVE); URINE UROBILINOGEN 0.2 mg/dL (0.2-1.0)
[2024-02-02] MEDS: ACETAMINOPHEN 500 MG TABLET (FP) PO ONE (23:35)
[2024-02-02 23:43] LABS: CHLORIDE 108 mmol/L (98-107); POTASSIUM 3.3 mmol/L (3.5-5.1); SODIUM 142 mmol/L (136-145)
[2024-02-02 23:44] LABS: CALCIUM 8.3 mg/dL (8.5-10.1)
[2024-02-02 23:45] LABS: ALBUMIN 3.8 g/dl (3.4-5.0); ANION GAP 10 mmol/L (4-13); BLOOD UREA NITROGEN 18.6 mg/dL (7-18); CO2 24 mmol/L (21-32); GLUCOSE,RANDOM 80 mg/dL (74-106)
[2024-02-02 23:47] LABS: SGOT/AST 9 U/L (15-37); SGPT/ALT 10 U/L (13-61)
[2024-02-02 23:48] LABS: CREATININE 0.7 mg/dL (0.55-1.3)
[2024-02-02 23:49] LABS: BILIRUBIN,TOTAL 0.4 mg/dL (0.2-1); TOT PROT 6.4 g/dl (6.4-8.2)
[2024-02-02 23:50] LABS: ALK PHOS 28 U/L (45-117)
[2024-02-03] MEDS ORDERED: ONDANSETRON 4 MG/2 ML VIAL ONE (00:32)
[2024-02-03] MEDS: ONDANSETRON 4 MG/2 ML VIAL IVPB ONE (00:43)
[2024-02-03 01:42] LABS: MAGNESIUM 2.1 mg/dL (1.8-2.4)
[2024-02-03] MEDS ORDERED: POTASSIUM CHLORIDE ORAL LIQUID 20 MEQ/15 ML ONE ×2 (02:22→02:23)
[2024-02-03] MEDS: POTASSIUM CHLORIDE ORAL LIQUID 20 MEQ/15 ML PO ONE (02:23)
[2024-02-03 02:39] VITALS: BP 122/82; PULSE 65; RESP 16; TEMP 97.3
== END 2024-02-03 02:40 | disposition home or self-care (01) ==
LOC: JER 21:50
PROC: 3E033GC Introduction of Other Therapeutic Substance into Peripheral Vein, Percutaneous Approach (ICD-10-PCS; principal; 2024-02-02)
DX: R10.11 Right upper quadrant pain (principal); R11.0 Nausea; R68.83 Chills (without fever); R63.0 Anorexia
CPT/HCPCS: 36415; 74177-TC; 80053; 81003; 83690; 83735; 84702; 85025; 99285-25